=== PATIENT | male | born 1960 | race Caucasian/White ===

== ENCOUNTER 2017-10-29 05:40 | Emergency (ER) | payer OTHER ==
[2017-10-29 06:19] LABS: BASOPHIL (%) 2.1 % (0-1); BASOPHIL COUNT 0.2 K/uL (0-0.1); EOSINOPHIL (%) 6.8 % (0-5); EOSINOPHIL COUNT 0.7 K/uL (0-0.3); HEMOGLOBIN 11.8 G/DL (12.5-16.6); IMMATURE GRANULOCYTE (%) 0.5 % (0.0-0.7); LYMPHOCYTE (%) 20.9 % (15-42); MCH 29.5 PG (29.0-34.0); MCHC 32.8 G/DL (30.0-36.0); MONOCYTE (%) 7.9 % (3-12); MONOCYTE COUNT 0.8 K/uL (0-0.8); NEUTROPHIL (%) 61.8 % (45-76); NEUTROPHIL COUNT 5.9 K/uL (1.8-6.4); PLATELET COUNT 265 K/uL (156-360); RBC DIS.WIDTH-CV 13.7 % (11.8-14.6); RBC DIS.WIDTH-SD 44.7 % (39-53); WHITE BLOOD COUNT 9.6 K/uL (4.1-10.2)
[2017-10-29 06:28] LABS: AMYLASE 44 IU/L (1-118); CHLORIDE 106 mEq/L (99-109); POTASSIUM 5.2 mEq/L (3.7-5.4); SODIUM 139 mEq/L (136-147)
[2017-10-29 06:30] LABS: GLUCOSE 133 mg/dL (70-99)
[2017-10-29 06:33] LABS: SERUM ETHYL ALCOHOL < 10 mg/dL
[2017-10-29 06:34] LABS: CREATININE 6.7 mg/dL (0.6-1.3); GFR ESTIMATE (CALCULATED) 9 mL/min/ (58.99-99999)
[2017-10-29 06:35] LABS: UREA NITROGEN (BUN) 38 mg/dL (9-23)
[2017-10-29 06:37] LABS: LIPASE 71 U/L (1.0-51.0)
== END 2017-10-29 10:15 | disposition short-term general hospital (02) ==
LOC: TRA 05:40
PROVIDERS: Emergency Medicine
PROC: 05HN33Z Insertion of Infusion Device into Left Internal Jugular Vein, Percutaneous Approach (ICD-10-PCS; principal; 2017-10-29)
PROC: 2W3QX1Z Immobilization of Right Lower Leg using Splint (ICD-10-PCS; principal; 2017-10-29)
PROC: 0QSGXZZ Reposition Right Tibia, External Approach (ICD-10-PCS; principal; 2017-10-29)
PROC: 0QSJXZZ Reposition Right Fibula, External Approach (ICD-10-PCS; principal; 2017-10-29)
DX: S82.391B Other fracture of lower end of right tibia, initial encounter for open fracture type I or II (principal); S82.451B Displaced comminuted fracture of shaft of right fibula, initial encounter for open fracture type I or II; E11.22 Type 2 diabetes mellitus with diabetic chronic kidney disease; N18.6 End stage renal disease; Z99.2 Dependence on renal dialysis; V49.40XA Driver injured in collision with unspecified motor vehicles in traffic accident, initial encounter; Y92.410 Unspecified street and highway as the place of occurrence of the external cause; R07.89 Other chest pain; R91.8 Other nonspecific abnormal finding of lung field
CPT/HCPCS: 70450; 71045; 71250; 72125; 72128; 72131; 73600; 74176; 80048; 81003; 82150; 83690; 85025; 86850; 86900; 86901; 93005; C1752; G0480; J0690; J1170; J2405; J3010